=== PATIENT | female | born 1965 | race Caucasian/White ===

== ENCOUNTER 2023-05-04 07:10 | Day surgery (SDC) | payer BC ==
[~2023-05-04] VITALS: Ht 160 cm; Wt 77.7 kg
[~2023-05-04 07:10] MED LIST: ESCI10; NASACORT10.8 ML; OMEP20ER PO
[2023-05-04] MEDS ORDERED: Premarin0.3 MG (08:03)
[2023-05-04 09:31] VITALS: BP 148/82
== END 2023-05-04 09:40 | disposition home or self-care (01) ==
LOC: ORSCSDS 07:10
PROVIDERS: Specialist
PROC: 0DB68ZX Excision of Stomach, Via Natural or Artificial Opening Endoscopic, Diagnostic (ICD-10-PCS; principal; 2023-05-04 08:45)
PROC: 0DB58ZX Excision of Esophagus, Via Natural or Artificial Opening Endoscopic, Diagnostic (ICD-10-PCS; principal; 2023-05-04 08:45)
PROC: 0DJD8ZZ Inspection of Lower Intestinal Tract, Via Natural or Artificial Opening Endoscopic (ICD-10-PCS; principal; 2023-05-04 08:45)
PROC: 0DB98ZX Excision of Duodenum, Via Natural or Artificial Opening Endoscopic, Diagnostic (ICD-10-PCS; principal; 2023-05-04 08:45)
DX: R10.13 Epigastric pain (principal); Z12.11 Encounter for screening for malignant neoplasm of colon; Z86.010 Personal history of colon polyps; Z83.71 Family history of colonic polyps; K29.70 Gastritis, unspecified, without bleeding; K64.8 Other hemorrhoids; L53.9 Erythematous condition, unspecified; K44.9 Diaphragmatic hernia without obstruction or gangrene; K21.9 Gastro-esophageal reflux disease without esophagitis; R14.0 Abdominal distension (gaseous); Z79.899 Other long term (current) drug therapy
CPT/HCPCS: 43239; G0105; 88305; 88342; J2704; J7120

== ENCOUNTER 2025-04-01 19:04 | Emergency (ER) | payer OTHER ==
[~2025-04-01] VITALS: Ht 160 cm; Wt 65.8 kg
[~2025-04-01 19:04] MED LIST changes: -ONDA4ODT MM; -PANT40 PO
[2025-04-01 22:34] LABS: Alanine Aminotransfer (ALT/SGP 32.0 U/L (12-78); Albumin, Blood 2.6 g/dL (3.4-5.0); Albumin/Globulin Ratio 0.5 (0.8-1.8); Anion Gap 8.0 mmol/L (3-11); Aspartate Aminotrans (AST/SGOT 15.0 U/L (12-37); Bilirubin, Total 0.3 mg/dL (0.1-1.0); Blood Urea Nitrogen 9.0 mg/dL (8-24); CO2, Blood 28.0 mmol/L (21-32); Calcium, Blood 9.1 mg/dL (8.5-10.1); Chloride, Blood 98.0 mmol/L (98-108); Creatinine, Blood 0.63 mg/dL (0.40-1.00); Globulin, Blood 5.7 g/dL (2.2-4.0); Glucose, Blood 111.0 mg/dL (70-99); Potassium, Blood 4.3 mmol/L (3.5-5.5); Sodium, Blood 130.0 mmol/L (136-145); Total Protein, Blood 8.3 g/dL (6.4-8.2)
[2025-04-01] MEDS ORDERED: ONDA4ODT MM (23:13)
[2025-04-01] MEDS ORDERED: PANT40 PO (23:13)
[2025-04-01 23:30] VITALS: BP 131/84
== END 2025-04-01 23:37 | disposition home or self-care (01) ==
LOC: ER 19:04
PROVIDERS: Physician Assistant
DX: E87.1 Hypo-osmolality and hyponatremia (principal); R10.13 Epigastric pain; Z79.899 Other long term (current) drug therapy
CPT/HCPCS: 80053; 83690; 99283

== ENCOUNTER → 2025-04-01 | Outpatient (CLI) | payer OTHER ==
[~2025-04-01] MED LIST changes: +ONDA4ODT MM; +PANT40 PO; +Premarin0.3 MG
[2025-04-01 18:07] LABS: BASOPHILS ABSOLUTE AUTO 0.04 K/mm3 (0.00-0.23); BASOPHILS PERCENT AUTO 0 % (0-2); EOSINOPHILS ABSOLUTE AUTO 0.02 K/mm3 (0.00-0.68); EOSINOPHILS PERCENT AUTO 0 % (0-6); Hematocrit 29.6 % (33.0-51.0); Hemoglobin 9.3 g/dL (11.5-16.0); IMMATURE GRAN ABSOLUTE AUTO 0.08 K/mm3 (0.00-0.10); IMMATURE GRAN PERCENT AUTO 1 % (0-1); LYMPHOCYTES ABSOLUTE AUTO 1.84 K/mm3 (0.84-5.20); LYMPHOCYTES PERCENT AUTO 15 % (21-46); MONOCYTES ABSOLUTE AUTO 0.92 K/mm3 (0.16-1.47); MONOCYTES PERCENT AUTO 7 % (4-13); Mean Corpuscular HGB Conc 31.4 g/dL (31.5-36.5); Mean Corpuscular Volume 85 fL (80-100); NEUTROPHILS ABSOLUTE AUTO 9.56 K/mm3 (1.96-9.15); NEUTROPHILS PERCENT AUTO 77 % (41-73); NRBC ABSOLUTE 0.00 K/mm3 (0.00-0.02); NRBC Auto 0.0 /100 WBC (0.0-0.2); Platelet Count 690 K/mm3 (150-400); RDW Coefficient Variation 13.9 % (11.7-14.2); RDW Standard Deviation 43.0 fL (35.1-46.3)
[2025-04-01 18:15] LABS: Alanine Aminotransfer (ALT/SGP 34.0 U/L (12-78); Albumin, Blood 2.6 g/dL (3.4-5.0); Albumin/Globulin Ratio 0.5 (0.8-1.8); Anion Gap 8.0 mmol/L (3-11); Aspartate Aminotrans (AST/SGOT 16.0 U/L (12-37); Bilirubin, Total 0.4 mg/dL (0.1-1.0); Blood Urea Nitrogen 10.0 mg/dL (8-24); CO2, Blood 28.0 mmol/L (21-32); Calcium, Blood 9.9 mg/dL (8.5-10.1); Chloride, Blood 93.0 mmol/L (98-108); Creatinine, Blood 0.8 mg/dL (0.40-1.00); Globulin, Blood 5.5 g/dL (2.2-4.0); Glucose, Blood 100.0 mg/dL (70-99); Potassium, Blood 3.7 mmol/L (3.5-5.5); Sodium, Blood 125.0 mmol/L (136-145); Total Protein, Blood 8.1 g/dL (6.4-8.2)
== END ==
LOC: LAB 17:59 → LAB SHORT 17:59
PROVIDERS: Physician Assistant
DX: R07.89 Other chest pain (principal)
CPT/HCPCS: 80053; 84484; 85025

== ENCOUNTER 2025-04-10 11:54 | Inpatient (IN) | payer OTHER ==
[~2025-04-10] VITALS: Ht 160 cm; Wt 63.8 kg
[~2025-04-10 11:54] MED LIST changes: +ONDA4ODT MM; +PANT40 PO
[2025-04-10 12:16] LABS: BASOPHILS ABSOLUTE AUTO 0.08 K/mm3 (0.00-0.23); BASOPHILS PERCENT AUTO 0 % (0-2); EOSINOPHILS ABSOLUTE AUTO 0.01 K/mm3 (0.00-0.68); EOSINOPHILS PERCENT AUTO 0 % (0-6); Hematocrit 36.0 % (33.0-51.0); Hemoglobin 11.2 g/dL (11.5-16.0); IMMATURE GRAN ABSOLUTE AUTO 0.14 K/mm3 (0.00-0.10); IMMATURE GRAN PERCENT AUTO 1 % (0-1); LYMPHOCYTES ABSOLUTE AUTO 1.26 K/mm3 (0.84-5.20); LYMPHOCYTES PERCENT AUTO 6 % (21-46); MONOCYTES ABSOLUTE AUTO 1.37 K/mm3 (0.16-1.47); MONOCYTES PERCENT AUTO 6 % (4-13); Mean Corpuscular HGB Conc 31.1 g/dL (31.5-36.5); Mean Corpuscular Volume 84 fL (80-100); NEUTROPHILS ABSOLUTE AUTO 18.53 K/mm3 (1.96-9.15); NEUTROPHILS PERCENT AUTO 87 % (41-73); NRBC ABSOLUTE 0.00 K/mm3 (0.00-0.02); NRBC Auto 0.0 /100 WBC (0.0-0.2); Platelet Count 646 K/mm3 (150-400); RDW Coefficient Variation 13.9 % (11.7-14.2); RDW Standard Deviation 42.5 fL (35.1-46.3)
[2025-04-10 12:43] LABS: Alanine Aminotransfer (ALT/SGP 38.0 U/L (12-78); Albumin, Blood 2.7 g/dL (3.4-5.0); Albumin/Globulin Ratio 0.4 (0.8-1.8); Anion Gap 12.0 mmol/L (3-11); Aspartate Aminotrans (AST/SGOT 20.0 U/L (12-37); Bilirubin, Total 0.6 mg/dL (0.1-1.0); Blood Urea Nitrogen 14.0 mg/dL (8-24); CO2, Blood 28.0 mmol/L (21-32); Calcium, Blood 10.2 mg/dL (8.5-10.1); Chloride, Blood 93.0 mmol/L (98-108); Creatinine, Blood 0.72 mg/dL (0.40-1.00); Globulin, Blood 6.7 g/dL (2.2-4.0); Glucose, Blood 181.0 mg/dL (70-99); Potassium, Blood 3.5 mmol/L (3.5-5.5); Sodium, Blood 129.0 mmol/L (136-145); Total Protein, Blood 9.4 g/dL (6.4-8.2)
[2025-04-10] MEDS ORDERED: Ondansetron HCl 2 MG / ML 2ML Vial IV ONE ×2 (13:15→15:30)
[2025-04-10] MEDS ORDERED: Morphine Sulfate 4 MG/1 ML Injection IV ONE ×2 (13:15→15:30)
[2025-04-10] MEDS ORDERED: NS 1,000 ML IV SCH (14:00)
[2025-04-10 14:17] LABS: Source, Urine Clean Catch
[2025-04-10 14:22] LABS: Bilirubin, Urine Neg (Neg); Color, Urine Yellow (P-Yellow); Glucose Qualitative, Urine Neg (Neg); Ketones, Urine Neg (Neg); Leukocyte Esterase, Urine 2+ (Neg); Protein, Urine 2+ (Neg); Specific Gravity, Urine 1.010 (1.003-1.022); Urobilinogen, Urine 2+ (Normal)
[2025-04-10] MEDS ORDERED: CefTRIAXone Sodium 2,000 MG in NS 100 ML IV ONE (14:50)
[2025-04-10] MEDS ORDERED: Ketorolac Tromethamine 15mg Vial IV ONE (15:30)
[2025-04-10 15:38] LABS: Prothrombin Time Results 13.2 Sec (9.7-11.5)
[2025-04-10] MEDS ORDERED: Ondansetron HCl 2 MG / ML 2ML Vial IV PRN (17:05)
[2025-04-10] MEDS ORDERED: ALIVE WOMEN S (19:44)
[2025-04-10 20:26] VITALS: BP 119/71
[2025-04-10] MEDS ORDERED: Docusate Sodium/Senna 1 Tab PO SCH (21:00)
[2025-04-10] MEDS ORDERED: Lactobacil 2-S.Thermo-Bifido 1 1 Cap PO SCH (21:00)
[2025-04-11 05:01] VITALS: BP 116/78
[2025-04-11 05:51] LABS: BASOPHILS ABSOLUTE AUTO 0.06 K/mm3 (0.00-0.23); BASOPHILS PERCENT AUTO 1 % (0-2); EOSINOPHILS ABSOLUTE AUTO 0.05 K/mm3 (0.00-0.68); EOSINOPHILS PERCENT AUTO 0 % (0-6); Hematocrit 31.1 % (33.0-51.0); Hemoglobin 9.6 g/dL (11.5-16.0); IMMATURE GRAN ABSOLUTE AUTO 0.05 K/mm3 (0.00-0.10); IMMATURE GRAN PERCENT AUTO 0 % (0-1); LYMPHOCYTES ABSOLUTE AUTO 1.28 K/mm3 (0.84-5.20); LYMPHOCYTES PERCENT AUTO 11 % (21-46); MONOCYTES ABSOLUTE AUTO 1.02 K/mm3 (0.16-1.47); MONOCYTES PERCENT AUTO 9 % (4-13); Mean Corpuscular HGB Conc 30.9 g/dL (31.5-36.5); Mean Corpuscular Volume 84 fL (80-100); NEUTROPHILS ABSOLUTE AUTO 9.05 K/mm3 (1.96-9.15); NEUTROPHILS PERCENT AUTO 79 % (41-73); NRBC ABSOLUTE 0.00 K/mm3 (0.00-0.02); NRBC Auto 0.0 /100 WBC (0.0-0.2); Platelet Count 508 K/mm3 (150-400); RDW Coefficient Variation 14.0 % (11.7-14.2); RDW Standard Deviation 42.9 fL (35.1-46.3)
--- NOTE | 2025-04-11 05:51 | NUR ---
SHIFT SUMMARY;AFTER ADMIT, PATIENT SLEPT IN LONG INTERVALS, UP TO BR, VOIDING. ENCOURAGED TO DRINK ALOT OF WATER, ATE SMALL MEAL. HAS NOT HAD A BM SINCE 04/03. D/T NOT EATING OR FEELING WELL.
[2025-04-11] MEDS ORDERED: Pantoprazole Sodium 40 MG Injection IV SCH (06:00)
[2025-04-11 06:30] LABS: Anion Gap 8.0 mmol/L (3-11); Blood Urea Nitrogen 8.0 mg/dL (8-24); CO2, Blood 29.0 mmol/L (21-32); Calcium, Blood 9.6 mg/dL (8.5-10.1); Chloride, Blood 98.0 mmol/L (98-108); Creatinine, Blood 0.69 mg/dL (0.40-1.00); Glucose, Blood 108.0 mg/dL (70-99); Potassium, Blood 3.4 mmol/L (3.5-5.5); Sodium, Blood 132.0 mmol/L (136-145)
[2025-04-11 07:53] VITALS: BP 106/76
[2025-04-11] MEDS ORDERED: Enoxaparin 40 MG/0.4 ML SYR SC SCH (09:00)
[2025-04-11] MEDS ORDERED: CefTRIAXone Sodium 1,000 MG in NS 100 ML IV SCH (09:00)
[2025-04-11] MEDS ORDERED: Vancomycin (Pharmacy Consult) IV SCH (13:40)
[2025-04-11 17:34] VITALS: BP 128/86
[2025-04-11 19:21] VITALS: BP 133/85
[2025-04-11] MEDS ORDERED: FentaNYL Citrate 50 MCG/ML 2 ML Injection IV PRN (19:35)
[2025-04-11 21:11] VITALS: BP 133/85
[2025-04-11 22:26] LABS: U Amphetamine Screen Not Detected; U Barbituate Screen Not Detected; U Benzodiazapine Screen Not Detected; U Buprenorphine Screen Not Detected; U Cannabinoids Screen Not Detected; U Cocaine Screen Not Detected; U Methadone Screen Not Detected; U Methamphetamine Screen Not Detected; U Opiates Screen Not Detected; U Oxycodone Screen Not Detected; U Phencyclidine Screen Not Detected
[2025-04-12] MEDS ORDERED: CefTRIAXone Sodium 2,000 MG in NS 100 ML IV SCH (09:00)
[2025-04-12 19:10] LABS: RHEUMATOID FACTOR 11 IU/mL (0-14)
[2025-04-12 22:23] LABS: ANTI-NUCLEAR AB ANA,IGG ELISA None Detected (None Detected)
[2025-04-15 09:31] LABS: MYELOPEROXIDASE (MPO) AB,IGG 0 AU/mL (0-19); SERINE PROTEINASE 3 PR3 AB,IGG 19 AU/mL (0-19)
== END 2025-04-11 22:45 | disposition short-term general hospital (02) | DRG 871 ==
LOC: ER 11:54 → ERHOLD 17:03 → MEDS 19:30
PROVIDERS: Emergency Medicine; Student in an Organized Health Care Education/Training Program; ADMIT Family Medicine
DX: A41.01 Sepsis due to Methicillin susceptible Staphylococcus aureus (principal); G06.1 Intraspinal abscess and granuloma; G95.29 Other cord compression; M46.34 Infection of intervertebral disc (pyogenic), thoracic region; M46.36 Infection of intervertebral disc (pyogenic), lumbar region; M46.24 Osteomyelitis of vertebra, thoracic region; N39.0 Urinary tract infection, site not specified; E87.1 Hypo-osmolality and hyponatremia; I31.39 Other pericardial effusion (noninflammatory); M46.26 Osteomyelitis of vertebra, lumbar region; D64.9 Anemia, unspecified; D75.839 Thrombocytosis, unspecified; E87.6 Hypokalemia; K59.00 Constipation, unspecified; K21.9 Gastro-esophageal reflux disease without esophagitis; E83.52 Hypercalcemia; K29.70 Gastritis, unspecified, without bleeding
CPT/HCPCS: 36415; 72157; 72158; 74177; 80048; 80053; 81001; 83516; 83605; 83690; 83880; 84484; 85025; 85610; 85651; 85730; 86038; 86140; 86431; 87040; 87077; 87086; 87147; 87186; 93005; 93010; 93306; 96361; 96365-59; 96375; 96376; 99285-25; A9270; A9579; J0696; J1650; J1885; J2270; J2405; J2470; J3010; J3373; J7030; J7050; Q9967

== ENCOUNTER 2025-04-22 01:18 | Day surgery (SDC) | payer OTHER ==
[~2025-04-22 01:18] MED LIST changes: +ALIVE WOMEN S
[2025-04-22 11:40] VITALS: BP 133/86
[2025-04-22 12:53] LABS: BASOPHILS ABSOLUTE AUTO 0.06 K/mm3 (0.00-0.23); BASOPHILS PERCENT AUTO 1 % (0-2); EOSINOPHILS ABSOLUTE AUTO 0.10 K/mm3 (0.00-0.68); EOSINOPHILS PERCENT AUTO 1 % (0-6); Hematocrit 32.0 % (33.0-51.0); Hemoglobin 9.8 g/dL (11.5-16.0); IMMATURE GRAN ABSOLUTE AUTO 0.05 K/mm3 (0.00-0.10); IMMATURE GRAN PERCENT AUTO 1 % (0-1); LYMPHOCYTES ABSOLUTE AUTO 1.53 K/mm3 (0.84-5.20); LYMPHOCYTES PERCENT AUTO 15 % (21-46); MONOCYTES ABSOLUTE AUTO 0.72 K/mm3 (0.16-1.47); MONOCYTES PERCENT AUTO 7 % (4-13); Mean Corpuscular HGB Conc 30.6 g/dL (31.5-36.5); Mean Corpuscular Volume 83 fL (80-100); NEUTROPHILS ABSOLUTE AUTO 7.50 K/mm3 (1.96-9.15); NEUTROPHILS PERCENT AUTO 75 % (41-73); NRBC ABSOLUTE 0.00 K/mm3 (0.00-0.02); NRBC Auto 0.0 /100 WBC (0.0-0.2); Platelet Count 742 K/mm3 (150-400); RDW Coefficient Variation 15.9 % (11.7-14.2); RDW Standard Deviation 47.4 fL (35.1-46.3)
[2025-04-22 14:01] LABS: C-REACTIVE PROTEIN, EXT RANGE 2.29 mg/dL (0.000-0.300)
[2025-04-22 14:02] LABS: Alanine Aminotransfer (ALT/SGP 10.0 U/L (12-78); Albumin, Blood 2.5 g/dL (3.4-5.0); Albumin/Globulin Ratio 0.5 (0.8-1.8); Anion Gap 5.0 mmol/L (3-11); Aspartate Aminotrans (AST/SGOT 14.0 U/L (12-37); Bilirubin, Total 0.3 mg/dL (0.1-1.0); Blood Urea Nitrogen 9.0 mg/dL (8-24); CO2, Blood 32.0 mmol/L (21-32); Calcium, Blood 9.3 mg/dL (8.5-10.1); Chloride, Blood 98.0 mmol/L (98-108); Creatinine, Blood 0.46 mg/dL (0.40-1.00); Globulin, Blood 5.2 g/dL (2.2-4.0); Glucose, Blood 105.0 mg/dL (70-99); Potassium, Blood 3.3 mmol/L (3.5-5.5); Sodium, Blood 132.0 mmol/L (136-145); Total Protein, Blood 7.7 g/dL (6.4-8.2)
== END 2025-04-22 11:58 | disposition home or self-care (01) ==
LOC: ATC 01:18
PROVIDERS: Internal Medicine Infectious Disease
DX: G06.1 Intraspinal abscess and granuloma (principal); B96.89 Other specified bacterial agents as the cause of diseases classified elsewhere; E87.6 Hypokalemia; K21.9 Gastro-esophageal reflux disease without esophagitis
CPT/HCPCS: 36592; 80053; 85025; 86140

== ENCOUNTER 2025-04-29 04:10 | Day surgery (SDC) | payer OTHER ==
[2025-04-29 15:04] VITALS: BP 136/91
[2025-04-29 16:17] LABS: BASOPHILS ABSOLUTE AUTO 0.07 K/mm3 (0.00-0.23); BASOPHILS PERCENT AUTO 1 % (0-2); EOSINOPHILS ABSOLUTE AUTO 0.09 K/mm3 (0.00-0.68); EOSINOPHILS PERCENT AUTO 1 % (0-6); Hematocrit 31.6 % (33.0-51.0); Hemoglobin 9.7 g/dL (11.5-16.0); IMMATURE GRAN ABSOLUTE AUTO 0.03 K/mm3 (0.00-0.10); IMMATURE GRAN PERCENT AUTO 0 % (0-1); LYMPHOCYTES ABSOLUTE AUTO 1.46 K/mm3 (0.84-5.20); LYMPHOCYTES PERCENT AUTO 19 % (21-46); MONOCYTES ABSOLUTE AUTO 0.75 K/mm3 (0.16-1.47); MONOCYTES PERCENT AUTO 10 % (4-13); Mean Corpuscular HGB Conc 30.7 g/dL (31.5-36.5); Mean Corpuscular Volume 86 fL (80-100); NEUTROPHILS ABSOLUTE AUTO 5.22 K/mm3 (1.96-9.15); NEUTROPHILS PERCENT AUTO 69 % (41-73); NRBC ABSOLUTE 0.00 K/mm3 (0.00-0.02); NRBC Auto 0.0 /100 WBC (0.0-0.2); Platelet Count 559 K/mm3 (150-400); RDW Coefficient Variation 16.7 % (11.7-14.2); RDW Standard Deviation 52.4 fL (35.1-46.3)
[2025-04-29 16:45] LABS: C-REACTIVE PROTEIN, EXT RANGE 1.14 mg/dL (0.000-0.300)
[2025-04-29 16:47] LABS: Alanine Aminotransfer (ALT/SGP 17.0 U/L (12-78); Albumin, Blood 2.7 g/dL (3.4-5.0); Albumin/Globulin Ratio 0.5 (0.8-1.8); Anion Gap 8.0 mmol/L (3-11); Aspartate Aminotrans (AST/SGOT 29.0 U/L (12-37); Bilirubin, Total 0.2 mg/dL (0.1-1.0); Blood Urea Nitrogen 12.0 mg/dL (8-24); CO2, Blood 28.0 mmol/L (21-32); Calcium, Blood 9.3 mg/dL (8.5-10.1); Chloride, Blood 102.0 mmol/L (98-108); Creatinine, Blood 0.5 mg/dL (0.40-1.00); Globulin, Blood 5.3 g/dL (2.2-4.0); Glucose, Blood 139.0 mg/dL (70-99); Potassium, Blood 3.4 mmol/L (3.5-5.5); Sodium, Blood 135.0 mmol/L (136-145); Total Protein, Blood 8.0 g/dL (6.4-8.2)
--- NOTE | 2025-04-29 16:54 | NUR ---
LABS FAXED TO [facility]
== END 2025-04-29 15:25 | disposition home or self-care (01) ==
LOC: ATC 04:10
PROVIDERS: Internal Medicine Infectious Disease
DX: G06.1 Intraspinal abscess and granuloma (principal); B96.89 Other specified bacterial agents as the cause of diseases classified elsewhere; K21.9 Gastro-esophageal reflux disease without esophagitis; Z85.3 Personal history of malignant neoplasm of breast
CPT/HCPCS: 36592; 80053; 85025; 86140

== ENCOUNTER 2025-05-06 15:21 | Day surgery (SDC) | payer OTHER ==
[2025-05-06 17:30] LABS: BASOPHILS ABSOLUTE AUTO 0.05 K/mm3 (0.00-0.23); BASOPHILS PERCENT AUTO 1 % (0-2); EOSINOPHILS ABSOLUTE AUTO 0.12 K/mm3 (0.00-0.68); EOSINOPHILS PERCENT AUTO 2 % (0-6); Hematocrit 31.9 % (33.0-51.0); Hemoglobin 9.5 g/dL (11.5-16.0); IMMATURE GRAN ABSOLUTE AUTO 0.02 K/mm3 (0.00-0.10); IMMATURE GRAN PERCENT AUTO 0 % (0-1); LYMPHOCYTES ABSOLUTE AUTO 1.50 K/mm3 (0.84-5.20); LYMPHOCYTES PERCENT AUTO 23 % (21-46); MONOCYTES ABSOLUTE AUTO 0.64 K/mm3 (0.16-1.47); MONOCYTES PERCENT AUTO 10 % (4-13); Mean Corpuscular HGB Conc 29.8 g/dL (31.5-36.5); Mean Corpuscular Volume 86 fL (80-100); NEUTROPHILS ABSOLUTE AUTO 4.13 K/mm3 (1.96-9.15); NEUTROPHILS PERCENT AUTO 64 % (41-73); NRBC ABSOLUTE 0.00 K/mm3 (0.00-0.02); NRBC Auto 0.0 /100 WBC (0.0-0.2); Platelet Count 472 K/mm3 (150-400); RDW Coefficient Variation 16.9 % (11.7-14.2); RDW Standard Deviation 52.3 fL (35.1-46.3)
[2025-05-06 17:46] LABS: C-REACTIVE PROTEIN, EXT RANGE 0.316 mg/dL (0.000-0.300)
[2025-05-06 17:49] LABS: Alanine Aminotransfer (ALT/SGP 12.0 U/L (12-78); Albumin, Blood 2.8 g/dL (3.4-5.0); Albumin/Globulin Ratio 0.6 (0.8-1.8); Anion Gap 5.0 mmol/L (3-11); Aspartate Aminotrans (AST/SGOT 21.0 U/L (12-37); Bilirubin, Total 0.2 mg/dL (0.1-1.0); Blood Urea Nitrogen 12.0 mg/dL (8-24); CO2, Blood 27.0 mmol/L (21-32); Calcium, Blood 9.0 mg/dL (8.5-10.1); Chloride, Blood 105.0 mmol/L (98-108); Creatinine, Blood 0.51 mg/dL (0.40-1.00); Globulin, Blood 4.6 g/dL (2.2-4.0); Glucose, Blood 80.0 mg/dL (70-99); Potassium, Blood 3.4 mmol/L (3.5-5.5); Sodium, Blood 134.0 mmol/L (136-145); Total Protein, Blood 7.4 g/dL (6.4-8.2)
== END 2025-05-06 16:06 | disposition home or self-care (01) ==
LOC: ATC 15:21
PROVIDERS: Internal Medicine Infectious Disease
DX: G06.1 Intraspinal abscess and granuloma (principal); B96.89 Other specified bacterial agents as the cause of diseases classified elsewhere; Z85.3 Personal history of malignant neoplasm of breast; Z90.13 Acquired absence of bilateral breasts and nipples
CPT/HCPCS: 36592; 80053; 85025; 86140

== ENCOUNTER 2025-05-18 01:38 | Day surgery (SDC) | payer OTHER ==
[2025-05-18 14:26] VITALS: BP 128/84
[2025-05-18 14:50] LABS: BASOPHILS ABSOLUTE AUTO 0.06 K/mm3 (0.00-0.23); BASOPHILS PERCENT AUTO 1 % (0-2); EOSINOPHILS ABSOLUTE AUTO 0.12 K/mm3 (0.00-0.68); EOSINOPHILS PERCENT AUTO 2 % (0-6); Hematocrit 33.6 % (33.0-51.0); Hemoglobin 10.3 g/dL (11.5-16.0); IMMATURE GRAN ABSOLUTE AUTO 0.01 K/mm3 (0.00-0.10); IMMATURE GRAN PERCENT AUTO 0 % (0-1); LYMPHOCYTES ABSOLUTE AUTO 1.54 K/mm3 (0.84-5.20); LYMPHOCYTES PERCENT AUTO 26 % (21-46); MONOCYTES ABSOLUTE AUTO 0.53 K/mm3 (0.16-1.47); MONOCYTES PERCENT AUTO 9 % (4-13); Mean Corpuscular HGB Conc 30.7 g/dL (31.5-36.5); Mean Corpuscular Volume 86 fL (80-100); NEUTROPHILS ABSOLUTE AUTO 3.60 K/mm3 (1.96-9.15); NEUTROPHILS PERCENT AUTO 62 % (41-73); NRBC ABSOLUTE 0.00 K/mm3 (0.00-0.02); NRBC Auto 0.0 /100 WBC (0.0-0.2); Platelet Count 322 K/mm3 (150-400); RDW Coefficient Variation 16.6 % (11.7-14.2); RDW Standard Deviation 52.2 fL (35.1-46.3)
[2025-05-18 15:35] LABS: C-REACTIVE PROTEIN, EXT RANGE 0.408 mg/dL (0.000-0.300)
[2025-05-18 15:36] LABS: Alanine Aminotransfer (ALT/SGP 8.0 U/L (12-78); Albumin, Blood 3.1 g/dL (3.4-5.0); Albumin/Globulin Ratio 0.7 (0.8-1.8); Anion Gap 8.0 mmol/L (3-11); Aspartate Aminotrans (AST/SGOT 13.0 U/L (12-37); Bilirubin, Total 0.2 mg/dL (0.1-1.0); Blood Urea Nitrogen 8.0 mg/dL (8-24); CO2, Blood 28.0 mmol/L (21-32); Calcium, Blood 8.9 mg/dL (8.5-10.1); Chloride, Blood 103.0 mmol/L (98-108); Creatinine, Blood 0.48 mg/dL (0.40-1.00); Globulin, Blood 4.7 g/dL (2.2-4.0); Glucose, Blood 90.0 mg/dL (70-99); Potassium, Blood 3.6 mmol/L (3.5-5.5); Sodium, Blood 135.0 mmol/L (136-145); Total Protein, Blood 7.8 g/dL (6.4-8.2)
== END 2025-05-18 14:33 | disposition home or self-care (01) ==
LOC: ATC 01:38
PROVIDERS: Internal Medicine Infectious Disease
DX: G06.1 Intraspinal abscess and granuloma (principal); B96.89 Other specified bacterial agents as the cause of diseases classified elsewhere; K21.9 Gastro-esophageal reflux disease without esophagitis; Z85.3 Personal history of malignant neoplasm of breast; Z90.13 Acquired absence of bilateral breasts and nipples
CPT/HCPCS: 36592; 80053; 85025; 86140

== ENCOUNTER 2025-05-25 00:34 | Day surgery (SDC) | payer OTHER ==
[2025-05-25 14:35] VITALS: BP 131/96
[2025-05-25 16:15] LABS: BASOPHILS ABSOLUTE AUTO 0.06 K/mm3 (0.00-0.23); BASOPHILS PERCENT AUTO 1 % (0-2); EOSINOPHILS ABSOLUTE AUTO 0.09 K/mm3 (0.00-0.68); EOSINOPHILS PERCENT AUTO 1 % (0-6); Hematocrit 35.5 % (33.0-51.0); Hemoglobin 10.9 g/dL (11.5-16.0); IMMATURE GRAN ABSOLUTE AUTO 0.03 K/mm3 (0.00-0.10); IMMATURE GRAN PERCENT AUTO 0 % (0-1); LYMPHOCYTES ABSOLUTE AUTO 1.50 K/mm3 (0.84-5.20); LYMPHOCYTES PERCENT AUTO 18 % (21-46); MONOCYTES ABSOLUTE AUTO 0.73 K/mm3 (0.16-1.47); MONOCYTES PERCENT AUTO 9 % (4-13); Mean Corpuscular HGB Conc 30.7 g/dL (31.5-36.5); Mean Corpuscular Volume 87 fL (80-100); NEUTROPHILS ABSOLUTE AUTO 6.06 K/mm3 (1.96-9.15); NEUTROPHILS PERCENT AUTO 72 % (41-73); NRBC ABSOLUTE 0.00 K/mm3 (0.00-0.02); NRBC Auto 0.0 /100 WBC (0.0-0.2); Platelet Count 348 K/mm3 (150-400); RDW Coefficient Variation 16.4 % (11.7-14.2); RDW Standard Deviation 52.2 fL (35.1-46.3)
[2025-05-25 17:08] LABS: C-REACTIVE PROTEIN, EXT RANGE 0.442 mg/dL (0.000-0.300)
[2025-05-25 17:09] LABS: Alanine Aminotransfer (ALT/SGP 8.0 U/L (12-78); Albumin, Blood 3.8 g/dL (3.4-5.0); Albumin/Globulin Ratio 0.8 (0.8-1.8); Anion Gap 8.0 mmol/L (3-11); Aspartate Aminotrans (AST/SGOT 16.0 U/L (12-37); Bilirubin, Total 0.3 mg/dL (0.1-1.0); Blood Urea Nitrogen 13.0 mg/dL (8-24); CO2, Blood 30.0 mmol/L (21-32); Calcium, Blood 9.6 mg/dL (8.5-10.1); Chloride, Blood 102.0 mmol/L (98-108); Creatinine, Blood 0.53 mg/dL (0.40-1.00); Globulin, Blood 4.5 g/dL (2.2-4.0); Glucose, Blood 86.0 mg/dL (70-99); Potassium, Blood 3.5 mmol/L (3.5-5.5); Sodium, Blood 136.0 mmol/L (136-145); Total Protein, Blood 8.3 g/dL (6.4-8.2)
--- NOTE | 2025-05-25 17:36 | NUR ---
LABS FAXED TO DR IBARRA AND [facility]
== END 2025-05-25 14:56 | disposition home or self-care (01) ==
LOC: ATC 00:34
PROVIDERS: Internal Medicine Infectious Disease
DX: G06.1 Intraspinal abscess and granuloma (principal); B96.89 Other specified bacterial agents as the cause of diseases classified elsewhere; K21.9 Gastro-esophageal reflux disease without esophagitis; Z85.3 Personal history of malignant neoplasm of breast
CPT/HCPCS: 36592; 80053; 85025; 86140